=== PATIENT | female | born 1945 | race Caucasian/White ===

== ENCOUNTER 2018-07-22 12:47 | Day surgery (SDC) | payer MEDICARE, OTHER ==
[~2018-07-22] VITALS: Ht 162.6 cm; Wt 57.6 kg
[~2018-07-22 12:47] MED LIST: ASCO500 PO; Aspirin EC81 MG PO; CALCIUM 600 +1 EAC8 PO; CHOL10002; DOCU100 PO; FISH OIL 1,0001 EAC1 PO; L-Lysine500 M1 PO; LISI20 PO; MELA3 PO; Multiple Vitam1 EACH PO; Prozac20 MG PO
== END 2018-07-22 14:43 | disposition home or self-care (01) ==
LOC: ORSCSDS 12:47
PROVIDERS: Surgery
PROC: 0DBH8ZX Excision of Cecum, Via Natural or Artificial Opening Endoscopic, Diagnostic (ICD-10-PCS; principal; 2018-07-22 14:30)
DX: Z12.11 Encounter for screening for malignant neoplasm of colon (principal); Z86.010 Personal history of colon polyps; D12.0 Benign neoplasm of cecum; I10 Essential (primary) hypertension; Z79.899 Other long term (current) drug therapy; Z79.82 Long term (current) use of aspirin
CPT/HCPCS: 88305; J7120

== ENCOUNTER → 2021-01-30 | Outpatient (CLI) | payer MEDICARE, OTHER | END | disposition home or self-care (01) | LOC: LAB SHORT 14:20 → LAB 14:20 | DX: D22.5 Melanocytic nevi of trunk (principal) | CPT/HCPCS: 88305 ==

== ENCOUNTER 2024-11-10 07:01 | Day surgery (SDC) | payer MEDICARE, OTHER ==
[~2024-11-10] VITALS: Ht 162.6 cm; Wt 56.1 kg
[~2024-11-10 07:01] MED LIST changes: +Balanced Salt Epinephrine Irrigation Solution 500 mL IR SCH; +Diazepam 2 MG Tab PO PRN; +Diazepam 5 MG Tab PO PRN; +Diazepam 5 MG Tab PO SCH; +Lidocaine HCl/Pf 1% 5 ML VIAL XX SCH; +Moxifloxacin HCL 0.5 MG/0.1 ML 0.4MLSYR RIGHTEYE SCH; +Ondansetron 4 MG SoluTab MM PRN; +PHENYLEPHRINE\\TROPICAMIDE\\TETRACAINE OPHTHALMIC DILATING SOLN RIGHTEYE PRN; +Povidone-Iodine 450 DROP/30 ML Solution ONE; +Povidone-Iodine 450 DROP/30 ML Solution RIGHTEYE SCH; +Tetracaine HCl/Pf 0.5% Opth Soln 4 ml ONE; +diazePAM 5 MG,diazePAM 2 MG PO SCH
[2024-11-10] MEDS ORDERED: Diazepam 5 MG Tab ONE (07:23)
[2024-11-10] MEDS ORDERED: Diazepam 2 MG Tab ONE (07:23)
[2024-11-10] MEDS ORDERED: METOPROLOL SUCC25 MG PO (07:48)
--- NOTE | 2024-11-10 08:47 | NUR ---
11/10/24 0847 Jessi Baird 0842 BP 147/71, HR 54 O2 99% BLOWBY, 16 RESP
--- NOTE | 2024-11-10 08:58 | NUR ---
11/10/[address] AT BEDSIDE
[2024-11-10 09:05] VITALS: BP 167/69
== END 2024-11-10 09:19 | disposition home or self-care (01) ==
LOC: ORSCSDS 07:01
PROVIDERS: Student in an Organized Health Care Education/Training Program
PROC: 08RJ3JZ Replacement of Right Lens with Synthetic Substitute, Percutaneous Approach (ICD-10-PCS; principal; 2024-11-10 08:30)
DX: H25.813 Combined forms of age-related cataract, bilateral (principal); H04.123 Dry eye syndrome of bilateral lacrimal glands; I10 Essential (primary) hypertension; Z79.899 Other long term (current) drug therapy
CPT/HCPCS: A9270; V2632

== ENCOUNTER 2024-11-17 07:25 | Day surgery (SDC) | payer MEDICARE, OTHER ==
[~2024-11-17] VITALS: Ht 162.6 cm; Wt 56.5 kg
[~2024-11-17 07:25] MED LIST changes: -Diazepam 5 MG Tab PO PRN; -Diazepam 5 MG Tab PO SCH; +METOPROLOL SUCC25 MG PO; +Moxifloxacin HCL 0.5 MG/0.1 ML 0.4MLSYR LEFTEYE SCH; -Moxifloxacin HCL 0.5 MG/0.1 ML 0.4MLSYR RIGHTEYE SCH; +PHENYLEPHRINE\\TROPICAMIDE\\TETRACAINE OPHTHALMIC DILATING SOLN LEFTEYE PRN; -PHENYLEPHRINE\\TROPICAMIDE\\TETRACAINE OPHTHALMIC DILATING SOLN RIGHTEYE PRN; +Povidone-Iodine 450 DROP/30 ML Solution LEFTEYE SCH; -Povidone-Iodine 450 DROP/30 ML Solution RIGHTEYE SCH
[2024-11-17] MEDS ORDERED: Diazepam 5 MG Tab ONE (07:42)
[2024-11-17] MEDS ORDERED: Diazepam 2 MG Tab ONE (07:42)
--- NOTE | 2024-11-17 08:08 | NUR ---
11/17/24 0808 Shauna Paul PT REPORTS ANXIETY LEVEL AT 210 PRIOR TO ADMINISTRATION OF VALIUM 7MG PO @ 0800. CALL LIGHT IN PLACE. CONTINUOUS HR AND SPO2 MONITORING IN PLACE. TETRACAINE IN AT 0803 PLEDGETT IN AT 0804
--- NOTE | 2024-11-17 08:41 | NUR ---
11/17/24 0841 Edilia Cervantes VITALS AT 0841 BP:145/73 P:59 O2:99% 10 LITERS OF BLOW BY OXYGEN
[2024-11-17] MEDS ORDERED: Acetaminophen 500 MG Tab ONE (09:00)
--- NOTE | 2024-11-17 09:02 | NUR ---
11/17/24 0902 MARITO QUAN PT STATES "ANNOYING PAIN". SHE WANTS TYLENOL. EXPLAINED THAT TYLENOL IS 1,000MG AND WAS THAT TOO MUCH. SHE SAYS, NO SHE DOESN'T THINK SO AND WANTS THE TYLENOL
[2024-11-17 09:03] VITALS: BP 137/66
== END 2024-11-17 09:32 | disposition home or self-care (01) ==
LOC: ORSCSDS 07:25
PROVIDERS: Student in an Organized Health Care Education/Training Program
PROC: 08RK3JZ Replacement of Left Lens with Synthetic Substitute, Percutaneous Approach (ICD-10-PCS; principal; 2024-11-17 09:00)
DX: H25.812 Combined forms of age-related cataract, left eye (principal); Z96.1 Presence of intraocular lens; H04.123 Dry eye syndrome of bilateral lacrimal glands; I10 Essential (primary) hypertension; Z79.899 Other long term (current) drug therapy
CPT/HCPCS: A9270; V2632

== ENCOUNTER 2025-04-06 13:03 | Day surgery (SDC) | payer MEDICARE, OTHER ==
[2025-04-06] VITALS (30 sets, daily range): BP systolic 111–228; BP diastolic 57–126
[~2025-04-06] VITALS: Ht 162.6 cm; Wt 52.8 kg
[~2025-04-06 13:03] MED LIST changes: -Balanced Salt Epinephrine Irrigation Solution 500 mL IR SCH; -Diazepam 2 MG Tab PO PRN; -Lidocaine HCl/Pf 1% 5 ML VIAL XX SCH; -Moxifloxacin HCL 0.5 MG/0.1 ML 0.4MLSYR LEFTEYE SCH; -Ondansetron 4 MG SoluTab MM PRN; -PHENYLEPHRINE\\TROPICAMIDE\\TETRACAINE OPHTHALMIC DILATING SOLN LEFTEYE PRN; -Povidone-Iodine 450 DROP/30 ML Solution LEFTEYE SCH; -Povidone-Iodine 450 DROP/30 ML Solution ONE; -Tetracaine HCl/Pf 0.5% Opth Soln 4 ml ONE; -diazePAM 5 MG,diazePAM 2 MG PO SCH
--- NOTE | 2025-04-06 13:50 | NUR ---
Ambulatory in Day Surgery WITH STEADY GAIT. History, Chart, Medications and Allergies reviewed before start of procedure. Pre-Op teaching done. Pt verbalizes understanding. Patient confirms NPO status and agrees with scheduled surgery. Patient States Post-Procedure ride home has been arranged WITH SPOUSE. GLASSES REMAIN IN PLACE WHILE IN PACU. SPOUSE AT BEDSIDE. WARM BLANKET PROVIDED. CALL LIGHT IN REACH.
--- NOTE | 2025-04-06 14:31 | NUR ---
04/06/25 1431 Earl Reyes CONFIRMED AND REVIEWED H&P, MEDCICATIONS, ALLERGIES, MEDICAL HISTORY, RESPIRATORY HISTORY, VITAL SIGNS, 3-LEAD EKG, CONSENTS, AND PHYSICIAN ORDERS. PATIENT CONFIRMS NPO STATUS AND AGREES WITH SCHEDULED PROCEDURE. MONITOR INTACT WITH CONTINUOUS PULSE OXIMETRY, CAPNOGRAPHY, 3-LEAD EKG, INTERMITTENT BP. SUPPLEMENTAL O2 TO BE TITRATED THROUGHOUT PROCEDURE TO MAINTAIN O2 SATURATION ABOVE 90%. PATIENT DETERMINED TO BE ASA APPROPRIATE FOR PROPOFOL SEDATION PRIOR TO START OF PROCEDURE BY DR. HERNÁNDEZ
--- NOTE | 2025-04-06 15:58 | NUR ---
TO STEP POST PROCEDURE. A/O X 3. DENIES PAIN, NAUSEA, SOB. HYPERTENSIVE T/O PROCEUDRE. PT TO TAKE METOPROLOL DOSE WHEN SHE ARRIVES HOME. LAZARA PO WELL. VERBALIZED UNDERSTANDING OF DC INSTRUCTIONS. DC'D VIA WC TO PRIVATE CAR WITH [employer].
== END 2025-04-06 16:00 | disposition home or self-care (01) ==
LOC: ORSCMMR 13:03 → ORD 14:15 → ORSCMMR 16:00
PROVIDERS: Surgery
PROC: 0DBP8ZX Excision of Rectum, Via Natural or Artificial Opening Endoscopic, Diagnostic (ICD-10-PCS; principal; 2025-04-06 14:15)
PROC: 0DBH8ZX Excision of Cecum, Via Natural or Artificial Opening Endoscopic, Diagnostic (ICD-10-PCS; principal; 2025-04-06 14:15)
PROC: 0DBL8ZX Excision of Transverse Colon, Via Natural or Artificial Opening Endoscopic, Diagnostic (ICD-10-PCS; principal; 2025-04-06 14:15)
DX: Z12.11 Encounter for screening for malignant neoplasm of colon (principal); D12.0 Benign neoplasm of cecum; D12.8 Benign neoplasm of rectum; K63.5 Polyp of colon; Z86.0101 Personal history of adenomatous and serrated colon polyps; I10 Essential (primary) hypertension; F32.A Depression, unspecified; Z79.899 Other long term (current) drug therapy
CPT/HCPCS: 88305; J2704; J7120